=== PATIENT | female | born 1950 | race Caucasian/White ===

== ENCOUNTER → 2016-06-29 | Outpatient (CLI) | payer OTHER | LOC: BRMIMAGING 10:07 | DX: S20.02XD Contusion of left breast, subsequent encounter (principal) | CPT/HCPCS: 76641-PO ==

== ENCOUNTER → 2017-02-26 | Outpatient (CLI) | payer OTHER | LOC: BRMIMAGING 09:48 | DX: N60.02 Solitary cyst of left breast (principal) | CPT/HCPCS: 76641-PO; G0202 ==

== ENCOUNTER → 2018-03-02 | Outpatient (CLI) | payer OTHER | LOC: BRMIMAGING 10:35 | DX: Z12.31 Encounter for screening mammogram for malignant neoplasm of breast (principal) ==